=== PATIENT | female | born 1975 | race Caucasian/White ===

== ENCOUNTER 2018-08-15 22:53 | Emergency (ER) | payer BC ==
[2018-08-15 23:01] VITALS: BP 128/74
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
== END 2018-08-15 23:50 | disposition home or self-care (01) ==
DX: S60.445A External constriction of left ring finger, initial encounter (principal); W49.04XA Ring or other jewelry causing external constriction, initial encounter; Y92.9 Unspecified place or not applicable; Y99.9 Unspecified external cause status; Y93.9 Activity, unspecified